=== PATIENT | female | born 1985 | race Caucasian/White ===

== ENCOUNTER → 2019-04-19 | Outpatient (CLI) | payer SELFPAY | END | disposition home or self-care (01) | LOC: LABWHC1 15:42 | PROVIDERS: ATTEND Ophthalmology | DX: H02.409 Unspecified ptosis of unspecified eyelid (principal) | CPT/HCPCS: 36415; 83519; 84439; 84443 ==

== ENCOUNTER → 2019-11-26 | Outpatient (CLI) | payer SELFPAY ==
--- NOTE | 2019-11-26 14:32 | MM ---
Reason for exam: clinical finding. History: Family history of breast cancer in maternal aunt at age 53 and breast cancer in maternal grandmother at age 60. Taking hormonal contraceptives for 20 years. Indicated problem(s): lump or thickening in the right breast. Physical Findings: Nurse Summary: 1 x 1cm nodule in the right breast at 1 o'clock (nurse ts). [facility] Diagnostic Mammo w CAD PANTERA Bilateral CC, MLO, and XCCL view(s) were taken. The breast tissue is extremely dense which could obscure a lesion on mammography. Very dense tissue bilaterally. 1 o'clock palpable marker on the right placed by the nurse. These results were verbally communicated with the patient and result sheet given to the patient on 11/26/19. ASSESSMENT: Incomplete: need additional imaging evaluation, BI-RAD 0 RECOMMENDATION: Ultrasound of both breasts. (bilateral pain and 1 o'clock palpable on the right)
--- NOTE | 2019-11-26 14:33 | USB ---
Reason for exam: additional evaluation requested from abnormal screening. History: Family history of breast cancer in maternal aunt at age 53 and breast cancer in maternal grandmother at age 60. Taking hormonal contraceptives for 20 years. US Breast BILAT Right complete breast ultrasound includes all four quadrants, the retroareolar region and axilla. Finding demonstrates a 10 x 4 x 6mm oval, cystic lesion at 1 o'clock. Left complete breast ultrasound includes all four quadrants, the retroareolar region and axilla. Finding demonstrates a 17 x 6 x 12mm oval, cystic lesion at the posterior nipple. These results were verbally communicated with the patient and result sheet given to the patient on 11/26/19. ASSESSMENT: Benign, BI-RAD 2 RECOMMENDATION: Routine screening mammogram of both breasts at age 40. Manage patient on a clinical basis.
== END | disposition home or self-care (01) ==
LOC: RADMAMWWP 12:58
PROVIDERS: ATTEND Family Medicine
DX: N63.10 Unspecified lump in the right breast, unspecified quadrant (principal)
CPT/HCPCS: 77066